=== PATIENT | male | born 1965 | race Hispanic/Latino ===

== ENCOUNTER 2016-11-05 10:11 | Emergency (ER) | payer MEDICAID, OTHER ==
[2016-11-05 10:11] VITALS: BMI 25.6
[2016-11-05 10:32] VITALS: BP 111/63; PULSE 89; RESP 16; TEMP 97.7; O2SAT 98
[2016-11-05] MEDS ORDERED: Sodium Chloride 0.9% 1,000 ML IV STA (10:52)
[2016-11-05] MEDS ORDERED: Piperacillin/Tazobact 3.375 GM in Sodium Chloride 0.9% 100 ML IVPB STA (10:52)
--- NOTE | 2016-11-05 10:55 | ED PDOC ---
Lower Extremity Pain/Injury Time Seen by Provider: 11/05/16 10:52 Chief Complaint (Nursing): Lower Extremity Problem/Injury Chief Complaint (Provider): right foot pain History Per: Patient (51 y/o male h/o DM here with ongoing right foot ulcer worsening recently associated with elevated blood glucose. Notes swelling/pain in region. Was advised by Dr. Duff podiatry to come to ED for evaluation. Currently not on any antibiotics.) Past Medical History Reviewed: Historical Data, Nursing Documentation, Vital Signs Vital Signs: Last Vital Signs Temp 97.7 F 11/05/16 10:29 Pulse 89 11/05/16 10:29 Resp 16 11/05/16 10:29 BP 111/63 11/05/16 10:29 Pulse Ox 98 11/05/16 10:29 - Medical History PMH: Anxiety, Benign Prostatic Hyperplasia, Depression, Diabetes, HTN, Hyperlipidemia Denies: Chronic Kidney Disease - Family History Family History: States: Unknown Family Hx - Home Medications Home Medications: Ambulatory Orders Medication Instructions Recorded Insulin Aspart [Novolog FLEXPEN] 17 unit SC TID 09/17/13 Alprazolam [Xanax] 0.5 mg PO QID PRN 11/05/16 Amoxicillin/Clavulanate [Augmentin 1 tab PO BID #14 tab 11/05/16 875 MG-125 MG] Aspirin [Ecotrin] 81 mg PO DAILY 11/05/16 Baclofen [Lioresal] 10 mg PO TID 11/05/16 Divalproex [Depakote DR] 500 mg PO HS 11/05/16 Enalapril Maleate [Vasotec] 20 mg PO DAILY 11/05/16 Gabapentin [Neurontin] 400 mg PO QID 11/05/16 Insulin Glargine,Hum.rec.anlog 30 unit SC HS 11/05/16 [Toujeo Solostar] Omeprazole [Omeprazole] 20 mg PO DAILY 11/05/16 Pravastatin Sodium [Pravachol] 40 mg PO HS 11/05/16 Sertraline [Zoloft] 100 mg PO HS 11/05/16 Zolpidem [Ambien] 10 mg PO HS PRN 11/05/16 - Allergies Allergies/Adverse Reactions: Allergies Allergy/AdvReac Type Severity Reaction Status Date / Time No Known Allergies Allergy Verified 03/04/15 10:53 Review of Systems ROS Statement: Except As Marked, All Systems Reviewed And Found Negative Physical Exam - Reviewed Nursing Documentation Reviewed: Yes Vital Signs Reviewed: Yes - Physical Exam Appears: Positive for: Well, Non-toxic, No Acute Distress Head Exam: Positive for: ATRAUMATIC, NORMAL INSPECTION, NORMOCEPHALIC Skin: Positive for: Normal Color, Warm, DRY Eye Exam: Positive for: EOMI, Normal appearance, PERRL ENT: Positive for: Normal ENT Inspection Neck: Positive for: Normal, Painless ROM Cardiovascular/Chest: Positive for: Regular Rate, Rhythm Respiratory: Positive for: CNT, Normal Breath Sounds Gastrointestinal/Abdominal: Positive for: Normal Exam, Bowel Sounds, Soft Back: Positive for: Normal Inspection Extremity: Positive for: Normal ROM, Tenderness, Swelling, Other (4 cm region of swelling/prululent material/ erythema noted along medial aspect to mid foot.) Neurologic/Psych: Positive for: Alert, Oriented - Laboratory Results Result Diagrams: 11/05/16 11:03 11/05/16 11:03 - ECG O2 Sat by Pulse Oximetry: 98 - Progress ED Course And Treament: BS 334 NS 1 liter 500ml per hour BC x 2 Zosyn 3.375 mg iv x 1 dose spoke with podiatry 10;55am INSULIN 4 UNITS REPEAT BS 158 SEEN BY PODIATRY; BLISTER DRAINED WILL F/U WITH PODIATRY CLINIC/[facility] TUESDAY. Disposition - Clinical Impression Clinical Impression: Wound infection - Patient ED Disposition Is Patient to be Admitted: No - Disposition Referrals: Podiatry Clinic [Outside] Disposition: Routine/Home Disposition Time: 13:07 Condition: FAIR Additional Instructions: F/U WITH DR. DUFF OR PODIATRY CLINIC TUESDAY Prescriptions: Amoxicillin/Clavulanate [Augmentin 875 MG-125 MG] 1 tab PO BID #14 tab Instructions: Wound Infection (ED) Forms: [employer] ([employer])
[2016-11-05] MEDS ORDERED: Piperacillin/Tazobact 3.375 gm Inj IVPB ONE (11:08)
[2016-11-05 11:21] LABS: VENOUS BLOOD GAS BASE EXCESS 3.2 mmol/L (0.0-2.0); VENOUS BLOOD GAS PCO2 45 mmHg (40-60); VENOUS BLOOD PH 7.41 (7.32-7.43)
[2016-11-05 11:24] LABS: ALB/GLOB RATIO 1.2 (1.0-2.1); ALKALINE PHOSPHATASE 77 U/L (38-126); ALT/SGPT 18 U/L (21-72); AST/SGOT 20 U/L (17-59); BILIRUBIN,TOTAL 0.8 mg/dl (0.2-1.3); BLOOD UREA NITROGEN 33 mg/dl (9-20); CALCIUM 8.8 mg/dL (8.4-10.2); CARBON DIOXIDE 24 mmol/L (22-30); CHLORIDE 99 mmol/L (98-107); GFR AFRICAN-AMERICAN > 60; GLUCOSE,RANDOM 309 mg/dL (75-110); POTASSIUM 4.1 MMOL/L (3.6-5.0); SODIUM 137 mmol/l (132-148); TOTAL PROTEIN 6.3 G/DL (6.3-8.2)
[2016-11-05 11:31] LABS: BASO % 0.3 % (0.0-2.0); EOS % 0.3 % (0.0-4.0); HEMATOCRIT 38.6 % (35.0-51.0); LYMPH # 1.5 K/uL (1.0-4.3); LYMPH % 17.8 % (20.0-40.0); MEAN CORPUSCULAR HEMOGLOBIN 31.2 pg (27.0-31.0); MEAN CORPUSCULAR HGB CONC 33.4 g/dL (33.0-37.0); MEAN PLATELET VOLUME 8.5 fl (7.2-11.7); MONO # 0.8 K/uL (0.0-0.8); MONO % 8.7 % (0.0-10.0); NEUT # 6.3 K/uL (1.8-7.0); NEUT % 72.9 % (50.0-75.0); NRBC % 0.1 % (0.0-0.0); RED CELL DISTRIBUTION WIDTH 12.6 % (11.5-14.5); WHITE BLOOD COUNT 8.6 K/uL (4.8-10.8)
[2016-11-05 11:38] LABS: MEAN CELL VOLUME 93.4 fl (80.0-94.0)
[2016-11-05] MEDS ORDERED: Insulin Regular 100 units/ml IVP ONE (11:46)
[2016-11-05] MEDS ORDERED: Insulin Regular 100 units/ml ONE (12:00)
--- NOTE | 2016-11-05 12:31 | CP.PCM.CON ---
History of Present Illness - History of Present Illness History of Present Illness: 51 y/o male seen at bedside in ED for right foot redness, and swelling secondary to a wound. Patient states that he has had a wound on his left foot for a while. Patient states that he noticed little swelling and redness on his left foot which led him to come to the ED. Patient denies of any recent trauma to the foot. Patient also denies of any pain to the foot. Patient also denies of any recent F/N/V/C/SOB/CP today. Patient states that he has not been dressing the wound and agrees to walk on it. Patient denies of any other pedal complains at this time. PMHx: Anxiety, Benign Prostatic Hyperplasia, Depression, Diabetes, HTN, Hyperlipidemia PSHx: denies Allergies: N.K.D.A Review of Systems - Constitutional Constitutional: As Per HPI Past Patient History - Past Medical History & Family History Past Medical History?: Yes - Past Social History Smoking Status: Never Smoked - CARDIAC Hx Hypertension: Yes - NEUROLOGICAL Hx Neurological Disorder: Yes Other/Comment: parasthesia ble - HEENT Hx HEENT Problems: No - RENAL Hx Chronic Kidney Disease: No - ENDOCRINE/METABOLIC Hx Endocrine Disorders: Yes Hx Diabetes Mellitus Type 2: Yes - HEMATOLOGICAL/ONCOLOGICAL Hx Blood Disorders: No - INTEGUMENTARY Hx Dermatological Problems: No - MUSCULOSKELETAL/RHEUMATOLOGICAL Hx Falls: No Other/Comment: rib fracture - GASTROINTESTINAL Hx Gastrointestinal Disorders: Yes Other/Comment: REFLUX - GENITOURINARY/GYNECOLOGICAL Hx Genitourinary Disorders: Yes - PSYCHIATRIC Hx Anxiety: Yes Hx Depression: Yes - SURGICAL HISTORY Hx Surgeries: Yes Other/Comment: MULTIPLE SURGERIS BUT PT STATES HE IS TOOK SICK TO CLARIFY - ANESTHESIA Hx Anesthesia: Yes Hx Anesthesia Reactions: No Hx Malignant Hyperthermia: No Meds Allergies/Adverse Reactions: Allergies Allergy/AdvReac Type Severity Reaction Status Date / Time No Known Allergies Allergy Verified 03/04/15 10:53 - Medications Medications: Current Medications Sodium Chloride (Sodium Chloride 0.9%) 1,000 mls @ 500 mls/hr IV .Q2H STA Stop: 11/05/16 12:51 Last Admin: 11/05/16 11:20 Dose: 500 mls/hr Physical Exam - Constitutional Appears: Well, Non-toxic, No Acute Distress - Extremities Exam Additional comments: Right LE focused exam: VASC: DP/PT pulses are palpable 2/4, [employer]: < 3 sec to all digits, Temp gradient: warm to warm from proximal to distal, mild non-pitting edema noted to the dorsum of the right foot Derm: hyperkeratotic lesion sub met head 1 with deep hematoma, no active bleeding or drainage, no open lesion, no probe to bone, no tunneling, no undermining, no malodor, erythema noted surround the the hyperkeratotic lesion NEURO: protective sensation slightly diminished ORTHO: minimal tenderness on palpation sub metatarsal head 1 at the hematoma site - Neurological Exam Neurological exam: Alert, Oriented x3 - Psychiatric Exam Psychiatric exam: Normal Affect, Normal Mood Results - Vital Signs Recent Vital Signs: Last Vital Signs Temp 97.7 F 11/05/16 10:29 Pulse 89 11/05/16 10:29 Resp 16 11/05/16 10:29 BP 111/63 11/05/16 10:29 Pulse Ox 98 11/05/16 10:55 - Labs Result Diagrams: 11/05/16 11:03 11/05/16 11:03 Labs: Laboratory Results - last 24 hr 11/05/16 11/05/16 11/05/16 11:03 11:03 11:18 WBC 8.6 RBC 4.14 L Hgb 12.9 Hct 38.6 MCV 93.4 D MCH 31.2 H MCHC 33.4 RDW 12.6 Plt Count 150 MPV 8.5 Neut % (Auto) 72.9 Lymph % (Auto) 17.8 L Hutchinson % (Auto) 8.7 Eos % (Auto) 0.3 Baso % (Auto) 0.3 Neut # 6.3 Lymph # 1.5 [place]inson # 0.8 Eos # 0.0 Baso # 0.0 pO2 57 H VBG pH 7.41 VBG pCO2 45 VBG HCO3 27.2 VBG Total CO2 29.9 H VBG O2 Sat (Calc) 91.7 H VBG Base Excess 3.2 H VBG Potassium 4.0 Glucose 342 H Lactate 1.1 FiO2 21.0 Sodium 137 133.0 Potassium 4.1 Chloride 99 100.0 Carbon Dioxide 24 Anion Gap 17 BUN 33 H Creatinine 1.2 Est GFR ( Amer) > 60 Est GFR (Non-Af Amer) > 60 Random Glucose 309 H Calcium 8.8 Total Bilirubin 0.8 AST 20 ALT 18 L Alkaline Phosphatase 77 Total Protein 6.3 Albumin 3.5 Globulin 2.8 Albumin/Globulin Ratio 1.2 Venous Blood Potassium 4.0 Assessment & Plan - Assessment and Plan (Free Text) Assessment: 51 y/o male seen at bedside in ED for cellulitic changes to the right foot secondary to hyperkeratotic lesion submetatarsal head 1 Plan: Patient evaluated and seen at bedside Patient discussed in details with attending Dr. Duff Labs and vitals reviewed (afebrile, WBC @ 8.4) x-rays ordered/reviewed: - no evidence of OM, no evidence of acute fracture, minimal soft tissue swelling noted Hematoma punctured using 18 guage needle Dressing applied using bacitracin, DSD Patient given prescription for Augmentin 875 mg BID Patient educated to follow up with Dr. Duff Patient educated to keep the dressing clean, dry and intact Patient given a surgical shoe Patient demonstrated verbal understanding Thank you for the podiatry consult
--- NOTE | 2016-11-05 12:45 | RAD ---
PROCEDURE: Right Foot Radiographs. HISTORY: foot pain COMPARISON: None. FINDINGS: BONES: No acute fracture or suspicious lytic or blastic change identified. 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 SOFT TISSUES: Normal. OTHER FINDINGS: None. IMPRESSION: No acute fracture dislocation. 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
--- NOTE | 2016-11-06 12:11 | CARD ---
APPROVED REPORT EKG Measurement Heart [id number] MI [id number] <Conclusion> Normal sinus rhythm Possible Left atrial enlargement Borderline ECG
== END 2016-11-05 13:15 | disposition home or self-care (01) ==
LOC: H.ER 10:11
DX: E11.621 Type 2 diabetes mellitus with foot ulcer (principal)
CPT/HCPCS: 73630; 80053; 82803; 82948; 85025; 87040; 93005; 96374; 99284; J2543; J7040